=== PATIENT | female | born 1945 | race Caucasian/White ===

== ENCOUNTER 2017-11-20 12:12 | Emergency (ER) | payer MEDICARE ==
[~2017-11-20] VITALS: Ht 162.6 cm; Wt 65.9 kg
[~2017-11-20 12:12] MED LIST: BAYER CHEWABLE81 MG PO; DILANTIN100 MG PO; PAROXETINE HCL10 MG PO; PLAVIX75 MG PO; PRILOSEC10 MG PO; ZOCOR10 MG PO
[2017-11-20 12:30] VITALS: Ht 162.6 cm; Wt 65.9 kg
[2017-11-20] MEDS ORDERED: MEDROL DOSE PACK4 MG PO (15:04)
[2017-11-20 15:28] VITALS: BP 148/94
== END 2017-11-20 15:33 | disposition home or self-care (01) ==
LOC: D.ER 12:12
DX: L50.9 Urticaria, unspecified (principal); I10 Essential (primary) hypertension; Z86.73 Personal history of transient ischemic attack (TIA), and cerebral infarction without residual deficits; G40.909 Epilepsy, unspecified, not intractable, without status epilepticus; I50.9 Heart failure, unspecified

== ENCOUNTER 2017-11-22 13:26 | Emergency (ER) | payer MEDICARE ==
[~2017-11-22] VITALS: Ht 162.6 cm; Wt 65.9 kg
[~2017-11-22 13:26] MED LIST changes: +MEDROL DOSE PACK4 MG PO
[2017-11-22 13:27] VITALS: Ht 162.6 cm; Wt 65.9 kg
[2017-11-22 18:00] VITALS: BP 152/77
== END 2017-11-22 18:02 | disposition home or self-care (01) ==
LOC: D.ER 13:26
DX: R07.9 Chest pain, unspecified (principal); R20.2 Paresthesia of skin; I10 Essential (primary) hypertension

== ENCOUNTER 2017-12-10 13:15 | Emergency (ER) | payer MEDICARE ==
[~2017-12-10] VITALS: Ht 162.6 cm; Wt 66.8 kg
[2017-12-10 13:21] VITALS: Ht 162.6 cm; Wt 66.8 kg
[2017-12-10 14:12] LABS: ALBUMIN 3.4 g/dL (3.4-5.0); ALKALINE PHOSPHATASE 111 U/L (46-116); ALT (SGPT) 18 U/L (10-68); APTT 25.6 SECONDS (22.8-39.4); BILIRUBIN - TOTAL 0.15 mg/dL (0.2-1.3); CALC OSMOLALITY 268 mosm/kg (275-300); CALCIUM 8.2 mg/dL (8.5-10.1); CARBON DIOXIDE 26.6 mmol/L (21.0-32.0); CHLORIDE - SERUM 98 mmol/L (98-107); CREATININE - SERUM 0.9 mg/dL (0.6-1.3); GLUCOSE 118 mg/dL (74-106); INR 0.95 (0.85-1.17); POTASSIUM - SERUM 3.9 mmol/L (3.5-5.1); PROTEIN - SERUM 7.3 g/dL (6.4-8.2); PROTIME 12.3 SECONDS (11.6-15.0); SODIUM 135 mmol/L (136-145); UREA NITROGEN 8 mg/dL (7-18); eGFR NON AFRICAN AMERICAN 65 mL/min (90-120)
[2017-12-10 14:13] LABS: D-DIMER-QUANTITATIVE 1.93 ug/mLFEU (0.20-0.54)
[2017-12-10 14:23] LABS: CKMB 2.5 U/L (0.0-3.6); CREATINE KINASE 116 UL (21-215); MAGNESIUM - SERUM 2.1 mg/dL (1.8-2.4); PHENYTOIN (DILANTIN) 6.5 ug/mL (10.0-20.0); THYROID STIMULATING HORMONE 1.99 uIU/mL (0.36-3.74)
[2017-12-10 14:25] LABS: TROPONIN-I < 0.017 ng/mL (0.000-0.060)
[2017-12-10 14:36] LABS: BASOPHILS 0.5 % (0-2); EOSINOPHILS 3.6 % (0-7); HEMATOCRIT 36.6 % (36.0-48.0); HEMOGLOBIN 12.6 g/dL (12-16); LYMPHOCYTES 23.9 % (15-50); MCH 32.1 pg (26.0-34.0); MCHC 34.4 g/dL (31.0-37.0); MCV 93.1 fL (80.0-100.0); MEAN PLATELET VOLUME 11.2 fL (7.4-10.4); MONOCYTES 9.7 % (2-11); NEUTROPHILS 62.3 % (40-80); PLATELET COUNT 198 10x3/uL (130-400); RBC 3.93 10x6/uL (4.00-5.40); RDW 12.9 % (11.5-14.5); WBC 6.1 10x3/uL (4.8-10.8)
[2017-12-10 14:58] LABS: APPEARANCE CLEAR (CLEAR); BILIRUBIN NEGATIVE (NEGATIVE); COLOR STRAW (YELLOW); GLUCOSE NEGATIVE (NEGATIVE); KETONE NEGATIVE (NEGATIVE); NITRITE NEGATIVE (NEGATIVE); PROTEIN NEGATIVE (NEGATIVE); SPECIFIC GRAVITY 1.005 (1.005-1.020); UROBILINOGEN NORMAL (NORMAL)
[2017-12-10 14:59] LABS: BACTERIA FEW /hpf (NONE SEEN); WHITE CELLS - URINE 0-5 /hpf (0-5)
[2017-12-10 15:24] LABS: UDS - AMPHET NEGATIVE QUAL (NEGATIVE); UDS - BARB NEGATIVE QUAL (NEGATIVE); UDS - BENZO NEGATIVE QUAL (NEGATIVE); UDS - COCAINE NEGATIVE QUAL (NEGATIVE); UDS - OPIATE NEGATIVE QUAL (NEGATIVE); UDS - PCP NEGATIVE QUAL (NEGATIVE); UDS - THC NEGATIVE QUAL (NEGATIVE)
[2017-12-10 18:17] VITALS: BP 150/66
== END 2017-12-10 18:17 ==
LOC: D.ER 13:15
PROVIDERS: Family Medicine
DX: I63.9 Cerebral infarction, unspecified (principal); G81.94 Hemiplegia, unspecified affecting left nondominant side; R20.2 Paresthesia of skin; R07.9 Chest pain, unspecified; G40.909 Epilepsy, unspecified, not intractable, without status epilepticus

== ENCOUNTER 2018-06-07 20:29 | Emergency (ER) | payer MEDICARE ==
[~2018-06-07] VITALS: Ht 162.6 cm; Wt 63.6 kg
[2018-06-07 20:35] VITALS: Ht 162.6 cm; Wt 63.6 kg
[2018-06-07 20:57] LABS: BASOPHILS 0.5 % (0-2); EOSINOPHILS 2.2 % (0-7); HEMATOCRIT 35.3 % (36.0-48.0); HEMOGLOBIN 12.2 g/dL (12-16); IMMATURE GRANULOCYTES 0.2 % (0-5); LYMPHOCYTES 18.8 % (15-50); MCH 33.1 pg (26.0-34.0); MCHC 34.6 g/dL (31.0-37.0); MCV 95.7 fL (80.0-100.0); MEAN PLATELET VOLUME 10.4 fL (7.4-10.4); MONOCYTES 10.6 % (2-11); NEUTROPHILS 67.7 % (40-80); PLATELET COUNT 185 10x3/uL (130-400); RBC 3.69 10x6/uL (4.00-5.40); RDW 12.1 % (11.5-14.5); WBC 8.5 10x3/uL (4.8-10.8)
[2018-06-07 21:11] LABS: ALBUMIN 3.5 g/dL (3.4-5.0); ALKALINE PHOSPHATASE 106 U/L (46-116); ALT (SGPT) 15 U/L (10-68); BILIRUBIN - TOTAL 0.16 mg/dL (0.2-1.3); CALC OSMOLALITY 267 mosm/kg (275-300); CARBON DIOXIDE 26.2 mmol/L (21.0-32.0); CHLORIDE - SERUM 99 mmol/L (98-107); CREATININE - SERUM 0.7 mg/dL (0.6-1.3); GLUCOSE 117 mg/dL (74-106); POTASSIUM - SERUM 3.8 mmol/L (3.5-5.1); PROTEIN - SERUM 7.3 g/dL (6.4-8.2); SODIUM 134 mmol/L (136-145); UREA NITROGEN 10 mg/dL (7-18); eGFR NON AFRICAN AMERICAN 86 mL/min (90-120)
[2018-06-07 22:28] VITALS: BP 152/85
== END 2018-06-07 22:28 | disposition home or self-care (01) ==
LOC: D.ER 20:29
PROVIDERS: Family Medicine
DX: R53.81 Other malaise (principal)

== ENCOUNTER 2019-07-12 12:22 | Emergency (ER) | payer MEDICARE ==
[2019-07-12 12:26] VITALS: Ht 162.6 cm
[2019-07-12 12:52] LABS: BASOPHILS 0.5 % (0-2); EOSINOPHILS 2.2 % (0-7); HEMATOCRIT 40.2 % (36.0-48.0); HEMOGLOBIN 13.5 g/dL (12-16); IMMATURE GRANULOCYTES 0.2 % (0-5); LYMPHOCYTES 24.1 % (15-50); MCH 32.1 pg (26.0-34.0); MCHC 33.6 g/dL (31.0-37.0); MCV 95.7 fL (80.0-100.0); MEAN PLATELET VOLUME 10.3 fL (7.4-10.4); MONOCYTES 8.7 % (2-11); NEUTROPHILS 64.3 % (40-80); RDW 12.4 % (11.5-14.5); WBC 8.2 10x3/uL (4.8-10.8)
[2019-07-12 12:53] LABS: PLATELET COUNT 224 10x3/uL (130-400)
[2019-07-12 12:56] LABS: CALCIUM 8.9 mg/dL (8.5-10.1); CARBON DIOXIDE 25.8 mmol/L (21.0-32.0); CREATININE - SERUM 0.8 mg/dL (0.6-1.3); POTASSIUM - SERUM 3.8 mmol/L (3.5-5.1)
[2019-07-12] MEDS ORDERED: LOTREL 5/10 MG1 CAP PO ×2 (12:59→13:28)
[2019-07-12 13:02] LABS: ALBUMIN 3.9 g/dL (3.4-5.0); BILIRUBIN - TOTAL 0.25 mg/dL (0.2-1.3); PHENYTOIN (DILANTIN) 1.2 ug/mL (10.0-20.0); PROTEIN - SERUM 7.8 g/dL (6.4-8.2)
[2019-07-12] MEDS ORDERED: TOPROL XL50 MG PO (13:57)
[2019-07-12] MEDS ORDERED: HYDROCHLOROTH12.5 M1 PO (13:59)
[2019-07-12 14:11] VITALS: BP 154/74
== END 2019-07-12 14:12 | disposition home or self-care (01) ==
LOC: D.ER 12:22
PROVIDERS: Emergency Medicine
DX: I10 Essential (primary) hypertension (principal); E87.1 Hypo-osmolality and hyponatremia; G40.909 Epilepsy, unspecified, not intractable, without status epilepticus